=== PATIENT | female | born 1990 | race Caucasian/White ===

== ENCOUNTER 2023-02-04 07:35 | Outpatient (CLI) | payer OTHER, SELFPAY ==
[2023-02-04 14:19] LABS: Basophils Percent Auto 0.7 % (0.2-1.2); Eosinophils Absolute Auto 0.2 K/mm3 (0-0.3); Eosinophils Percent Auto 4.3 % (0-4.4); Hemoglobin 13.6 g/dL (12.0-15.0); Immature Granulocyte Absolute 0.01 K/mm3 (0.00-0.031); Immature Granulocyte Percent A 0.2 % (0-0.5); Lymphocytes Absolute Auto 1.77 K/mm3 (0.9-3.2); Lymphocytes Percent Auto 32.8 % (18.3-44.2); Mean Corpuscular HGB Conc 33.2 g/dl (32-36); Mean Corpuscular Hemoglobin 29.8 pg (26-34); Mean Corpuscular Volume 89.9 fl (80-100); Mean Platelet Volume 10.7 fl (7.4-10.4); Monocytes Absolute Auto 0.4 K/mm3 (0.1-0.6); Monocytes Percent Auto 7.4 % (2.6-8.5); Neutrophils Percent Auto 54.6 % (45.5-73.1); Platelet Count Result 256 k/mm3 (150-375); Red Blood Count 4.56 M/mm3 (4.2-5.4); Red Cell Distribution Width 13.8 % (11.5-14.5); White Blood Count 5.4 K/mm3 (4.5-10.0)
[2023-02-04 14:27] LABS: Alanine Aminotransferase 20 U/L (6-35); Albumin Level 4.4 g/dL (3.5-5.1); Alkaline Phosphatase 102 U/L (38-126); Anion Gap 7 mmol/L (8-16); Aspartate Amino Transferase 74 U/L (14-36); Bilirubin,Total 0.4 mg/dL (0.2-1.3); Blood Urea Nitrogen 18 mg/dL (7-17); Calcium 8.8 mg/dL (8.4-10.2); Carbon Dioxide 26 mmol/L (22-30); Chloride 104 mmol/L (98-107); Cholesterol 159 mg/dL (0-200); Estimated Glomerular Filt Rate > 60; Glucose 92 mg/dL (65-110); HDL Direct 43 mg/dL; Potassium 3.9 mmol/L (3.4-5.0); Sodium 137 mmol/L (137-145); Triglycerides 68 mg/dL (<150)
[2023-02-04 14:38] LABS: LDL Cholesterol Direct 86 mg/dL
[2023-02-09 05:51] LABS: FSH 7.7 mIU/mL (***); LH 10.9 mIU/mL (***); Progesterone 0.5 ng/mL (***)
[2023-02-10 18:56] LABS: Testosterone Free 2.8 pg/mL (0.1-6.4); Testosterone Total 23 ng/dL (2-45)
[2023-02-12 17:52] LABS: Estrogen 735.4 pg/mL
[2023-02-13 23:50] LABS: Estradiol, Ultrasensitive 235 pg/mL
== END 2023-02-04 07:36 | disposition home or self-care (01) ==
LOC: ANHBWCLAB 07:35
PROVIDERS: PCP Family Medicine; Visit Provider Nurse Practitioner
DX: R53.83 Other fatigue (principal); F41.9 Anxiety disorder, unspecified; F32.A Depression, unspecified; E66.9 Obesity, unspecified; K21.9 Gastro-esophageal reflux disease without esophagitis; Z76.89 Persons encountering health services in other specified circumstances
CPT/HCPCS: 36415; 80053; 80061; 82670; 82672; 83001; 83002; 84144; 84402; 84403; 84443; 85025

== ENCOUNTER 2023-03-15 03:49 | Day surgery (SDC) | payer OTHER, SELFPAY ==
[2023-03-03 09:26] VITALS: BMI 34.5
[2023-03-15 08:04] VITALS: BP 112/76; PULSE 72; RESP 16; TEMP 36; O2SAT 99
[2023-03-15] MEDS: LACTATED RINGERS 1,000 ML 150 ML IV CONT (08:11)
--- NOTE | 2023-03-15 08:18 | WPDANESEPPF ---
Anes - Initial Pre Proc Eval Procedure: Operation Date: 03/15/23 09:00 Proposed Procedures p Esophagogastroduodenoscopy - Magdy Hunt MD Date/Time: 03/15/23 08:18 Surgeon: Magdy Hunt MD Pre Op Diagnosis: GERD, Family hx colon ca Patient Data Age: 32 Gender: F Height: 1.78 m Weight: 111.2 kg Last Vital Signs Temp 36.0 C L 03/15/23 08:04 Pulse 72 03/15/23 08:04 Resp 16 03/15/23 08:04 BP 112/76 03/15/23 08:04 Pulse Ox 99 03/15/23 08:04 O2 Del Method Room Air 03/15/23 08:04 Allergies Allergy/AdvReac Type Severity Reaction Status Date / Time ciprofloxacin [From Cipro] Allergy Mild Hives Verified 03/15/23 07:59 Sulfa (Sulfonamide Allergy Hives Verified 03/15/23 07:59 Antibiotics) Home Medications Medication Instructions Recorded Confirmed Type cetirizine 10 mg tablet (Zyrtec) 10 mg PO DAILY #30 tabs 09/09/19 03/15/23 Rx spironolactone 100 mg tablet 100 mg PO DAILY 01/25/23 03/15/23 History venlafaxine 75 mg tablet 75 mg PO DAILY 01/25/23 03/15/23 History inulin 2 gram chewable tablet 2 g PO DAILY 02/04/23 03/15/23 History (Fiber Gummies) multivitamin with minerals-folic 1 tablet PO DAILY 03/03/23 03/15/23 History acid 0.4 mg tablet Patient hx anesthesia problems: none Family hx anesthesia problems: none Results Review: All pre-operative results and documents have been reviewed as part of the pre-operative evaluation. [facility] Past Medical History Medical History Family history of esophageal cancer Family History Family History Father Esophageal cancer Mother Depression Grandparent Diabetes mellitus Heart disease Grandparent Diabetes mellitus Heart disease Social History Social History Smoking status: Never smoker Alcohol intake: current Drinks per week: 4 Alcohol use details: weekend use Substance use: never Substance use type: does not use Lack of Transportation: No Lack of Food: Never True Current Housing: I Have Housing Concerned About Future Housing: No Difficulty Paying Gas/Electric Bills: No Difficulty Paying for Meds: No Currently Unemployed: No Education: Master's Degree or Higher Difficulty w/ Childcare or Family Care: No Living arrangements: with friend(s) Occupation/Education: occupation Additional occupation/education comments: [employer] Gender identity (if verbalized by the patient): Female Spiritual care concerns: No Agree to blood products: Yes Anes - Eval Final PreProcedure Day of Procedure 03/15/23 08:18 Patient weight: obese Heart: regular rate and rhythm Lungs: clear to auscultation Airway: Mallampati scale class II Neurological: alert and oriented Last oral intake: >/= 8 hours ASA classification: II Emergent: no Anesthetic plan: proceed Anesthesia type and monitoring: general GIVS and standard monitoring Results Review: All pre-operative results and documents have been reviewed as part of the pre-operative evaluation. Informed Consent: The patient's anesthetic plan and its attendant risks and benefits were discussed with the patient/family/POA. Questions were solicited and answers provided to the satisfaction of the patient/family/POA.
--- NOTE | 2023-03-15 08:35 | PM.HPGS ---
History of Present Illness History of Present Illness Consent: Risks, benefits, and alternatives have been discussed and questions answered. Patient agrees to proceed with procedure. Chief complaint: GERD, Family hx colon ca Narrative: Alka Calvin is a 32 year old female with gerd on omeprazole and pepcid, never had egd. Father had esophageal cancer. Review of Systems Constitutional: Constitutional: Denies headache(s) and Denies weakness Eyes: Eyes: Denies blurry vision ENT: Reports Normal hearing present, Denies headache(s) and Denies neck pain Cardiovascular: Cardiovascular: Denies chest pain and Denies dyspnea Respiratory: Respiratory: Denies dyspnea Gastrointestinal: Gastrointestinal: Reports no additional gastrointestinal complaints Genitourinary: Genitourinary: Denies dysuria Musculoskeletal: Musculoskeletal: Denies neck pain Integumentary/Breasts: Skin/Breast: Denies dry skin Neurologic: Reports Normal hearing present, Denies headache(s) and Denies weakness Psychiatric: Psychiatric: Denies anxiety Endocrine: Endocrine: Denies change in body appearance Hematologic/Lymphatic: Hematologic/Lymphatic: Denies easy bleeding Allergic/Immunologic: Allergic/Immunologic: Denies urticaria PMFSH Past Medical History Medical History Family history of esophageal cancer Family History Family History Father Esophageal cancer Mother Depression Grandparent Diabetes mellitus Heart disease Grandparent Diabetes mellitus Heart disease Social History Social History Smoking status: Never smoker Alcohol intake: current Drinks per week: 4 Alcohol use details: weekend use Substance use: never Substance use type: does not use Lack of Transportation: No Lack of Food: Never True Current Housing: I Have Housing Concerned About Future Housing: No Difficulty Paying Gas/Electric Bills: No Difficulty Paying for Meds: No Currently Unemployed: No Education: Master's Degree or Higher Difficulty w/ Childcare or Family Care: No Living arrangements: with friend(s) Occupation/Education: occupation Additional occupation/education comments: [employer] Gender identity (if verbalized by the patient): Female Spiritual care concerns: No Agree to blood products: Yes Meds Home Medications and Allergies Home Medications Medication Instructions Recorded Confirmed Type cetirizine 10 mg tablet (Zyrtec) 10 mg PO DAILY #30 tabs 09/09/19 03/15/23 Rx spironolactone 100 mg tablet 100 mg PO DAILY 01/25/23 03/15/23 History venlafaxine 75 mg tablet 75 mg PO DAILY 01/25/23 03/15/23 History inulin 2 gram chewable tablet 2 g PO DAILY 02/04/23 03/15/23 History (Fiber Gummies) multivitamin with minerals-folic 1 tablet PO DAILY 03/03/23 03/15/23 History acid 0.4 mg tablet Allergies Allergy/AdvReac Type Severity Reaction Status Date / Time ciprofloxacin [From Cipro] Allergy Mild Hives Verified 03/15/23 07:59 Sulfa (Sulfonamide Allergy Hives Verified 03/15/23 07:59 Antibiotics) Vital Signs Vital Signs - 24 hr 03/15/23 08:04 Temperature 96.8 F L Pulse Rate 72 Respiratory Rate 16 Blood Pressure 112/76 Pulse Oximetry 99 Oxygen Delivery Room Air Exam Const: General: comfortable and no acute distress HENMT: Face/Nose/Sinus: Normal nares present Eyes: General: appearance normal, both eyes and all related structures Neck: Neck: no JVD Resp: Auscultation: clear to auscultation bilaterally Cardio: Rate: regular rate Rhythm: regular rhythm GI: Inspection: non-distended GI Palp: Yes Soft to palpation Skin: General skin exam: normal color Neuro: General: gait normal Speech: normal speech Extrem: General: normal to inspection Psych: Mental Status: mental status grossly normal
[2023-03-15 08:53] VITALS: BP 106/68; PULSE 66; RESP 17; O2SAT 100
[2023-03-15 09:03] VITALS: BP 113/75; PULSE 67; RESP 19; O2SAT 99
[2023-03-15 09:13] VITALS: BP 105/69; PULSE 63; RESP 20; O2SAT 100
== END 2023-03-15 09:34 | disposition home or self-care (01) ==
PROVIDERS: PCP Family Medicine; Visit Provider Internal Medicine Gastroenterology
PROC: 0DJ08ZZ Inspection of Upper Intestinal Tract, Via Natural or Artificial Opening Endoscopic (ICD-10-PCS; CPT 43235; principal; 2023-03-15 09:00)
DX: K21.00 Gastro-esophageal reflux disease with esophagitis, without bleeding (principal); Z80.0 Family history of malignant neoplasm of digestive organs; E66.9 Obesity, unspecified; Z68.35 Body mass index [BMI] 35.0-35.9, adult
CPT/HCPCS: 43239; 88305; J2704; J7120

== ENCOUNTER 2024-02-07 14:48 | Outpatient (CLI) | payer OTHER, SELFPAY ==
--- NOTE | ~2024-02-07 | XR_ITS ---
XR abdomen/kub 1V 02/07/2024 15:00 INDICATION: Abdomen pain TECHNIQUE: KUB COMPARISON: None FINDINGS: Bowel gas pattern is normal. There is an IUD in the pelvis. There are surgical clips in the lower abdomen and pelvis. Moderate colonic fecal loading. There is no evidence of free air, mass, or ganomegaly, ascites or obstruction. No abnormal calculi are seen. The bones appear intact. IMPRESSION: 1: No acute abdominal abnormality identified. Reviewed, dictated and finalized at location B.
[2024-02-07 20:22] LABS: Appearance Urine Clear (Clear); Bacteria Urine 1+ /hpf; Bilirubin Urine Negative (Negative); Blood Urine Negative (Negative); Color Urine Yellow (Yellow); Glucose Urine UA Negative (Negative); Ketones Urine Negative (Negative); Leukocyte Esterase Ur 1+ LEU/UL (Negative); Nitrate Urine Negative (Negative); Non Pathogenic Casts 0-2; Protein Urine Negative (Negative); RBC Urine 0-2 /hpf (0-2); Squamous Epithelial Cell Urine None Seen /hpf (Few); Urobilinogen Urine 0.2 mg/dL (<2.0); pH Urine 7.5 (5.0-9.0)
[2024-02-07 20:24] LABS: Add Urine Microscopic? YES; Specific Grav Ur 1.004 (1.001-1.035)
== END 2024-02-07 14:49 | disposition home or self-care (01) ==
LOC: ANHBWCLAB 14:50
PROVIDERS: PCP Nurse Practitioner Adult Health; Visit Provider Nurse Practitioner Adult Health
DX: R39.9 Unspecified symptoms and signs involving the genitourinary system (principal)
CPT/HCPCS: 74018; 81001; 87077; 87086; 87088; 87186

== ENCOUNTER 2025-07-02 07:38 | Outpatient (CLI) | payer OTHER, SELFPAY ==
--- OUTSIDE RECORDS SUMMARY | 2025-07-02 07:42 | XMS_ITS | Encounter Summary ---
Author Organization [facility] Address [address] [place] [address] Phone Care Team Providers Care Document Processor Name Role Phone Dunia Olivera MD Primary Care Provider [phone] Stephani Ochoa MD Unavailable Joselyn Miramontes NP Primary Care Provider [phone] Encounter Details Date Type Department Care Team (Late st Contact Info) Description 10/07/[address] 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 us Historical Provider LAB PATHOLOGY ORDERABLES Final Result documented in this encounter Visit Diagnoses Not on filedocumented in this encounter Care Teams Document Processor Relationship Specialty Start Date End Date Dunia Olivera MD PCP - General 12/03/16 06/25/24 Joselyn Miramontes NP [address] [place] [address] PCP - General Nurse Practitioner 06/26/24 Stephani Ochoa MD [address] [place] [address] Staff Services Manager Obstetrics and Gynecology 09/05/17 documented as of this encounter
--- OUTSIDE RECORDS SUMMARY | 2025-07-02 07:42 | XMS_ITS | Clinical Summary ---
Author Organization [facility] Address [address] [place] [address] Phone Care Team Providers Care Audit Manager Name Role Phone Stephani Ochoa MD Unavailable [phone] Joselyn Miramontes NP Primary Care Provider [phone] Allergies Active Allergy Reactions Criticality Noted Date Comments Ciprofloxacin Hives Medium 12/30/2017 Sulfanilamide Hives Medium Medications levonorgestrel (MIRENA) IUD 1 each by intrauterine route once for 1 dose. 1 each 01/06/20 18 Active spironolactone (ALDACTONE) 100 mg tablet 04/08/20 22 Active venlafaxine XR (EFFEXOR-XR) 75 mg 24 hr capsuleIndicat ions:PMS (premenstrual syndrome) Take 1 capsule (75 mg total) by mouth daily 90 capsule 3 06/17/20 25 Active venlafaxine XR (EFFEXOR-XR) 75 mg 24 hr capsuleIndicat ions:PMS (premenstrual syndrome) Take 1 capsule (75 mg total) by mouth daily 90 capsule 3 06/14/20 24 2024 Discontinued(R eordanamika) methylPREDNISo lone (Medrol, Baljinder,) 4 mg DosepackIndica tions:Upper respiratory tract infection, unspecified type follow package directions 21 tablet 06/26/20 24 2024 Discontinued promethazine-D M (PROMETHAZINE- DM) 1.25-3 mg/mL syrupIndicatio ns:Allergic Rhinitis,Cough Take 5 mL by mouth 4 (four) times a day as needed for cough 120 mL 06/26/202024 Discontinued Active Problems Problem Noted Date Diagnosed Date Recurrent major depression 06/13/2023 Obesity (BMI 30-39.9) 06/09/2022 Premenstrual tension syndrome 09/19/2014 Overview (12/10/2016): PMS - Premenstrual syndrome Resolved Problems Problem Noted Date Diagnosed Date Resolved Date Gastroesophageal reflux disease 10/08/2019 07/29/2020 Assessment & Plan (10/08/2019 3:20 PM DENTAL SURGERY DOCTOR): She reports symptoms or reflux after drinking coffee in the morning and when eating hot and spicy food. She will be started on pepcid and discussed avoiding known irritants. She will follow up in 4 weeks. Cough 10/08/2019 07/29/2020 Assessment & Plan (10/08/2019 3:18 PM DENTAL SURGERY DOCTOR): Persistent has been ongoing for greater than one year. Etiology is unclear, we will do CXR to r/o acute cardiopulmonary process. We will begin treatment for reflux with pepcid as there is concern that cough may be secondary to reflux. She will follow up in 4 weeks. If no improvement possible referral to GI vs bander and cellophaner machine Urinary tract infection without hematuria 12/30/2017 07/29/2020 Assessment & Plan (12/30/2017 12:20 PM CDT): Patient complains of incomplete emptying of her bladder having make more 1 trip to the bathroom some degree of urgency, dysuria, urine has a strong her smell and mild back pain in the flank area. No fever no chills no night sweats patient has had UTIs before. She is allergic to sulfa. Patient is given ciprofloxacin 500 mg twice a day for 5 days [employer]A CIVIL ENGINEERING PROFESSOR requested. Encounters Date Type Department Care Team Description 06/17/2025 3:00 PM CDT Office Visit [facility] [address] [place] [address] Stephani Ochoa MD Encounter for gynecological examination without abnormal finding (Primary Dx); Surveillance of intrauterine contraception; PMS (premenstrual syndrome); Encounter for general counseling and advice on contraceptive management from Last 3 Months Immunizations Immunization Administration Dates Next Due DT 02/10/2004 DTaP, Unspecified 07/24/1994, 1,01/13/1990,11/16,1989 Hep B, Unspecified 07/10/1998,01/01/1998, 998 Influenza, Trivalent, Preser vative Free, Intramuscular 08/20/2015 Influenza, Unspecified 07/04/2020 MMR 07/24/1994,10/24/1990 PPD TEST 07/29/2020 PPD TEST, UNSPECIFIED 02/10/2004 Tdap 01/09/2013 Surgical History Surgery Date Site/Laterality Comments APPENDECTOMY 03/05/2005 - 04/04/2005 Appendectomy OTHER SURGICAL HISTORY 1983 Adenoids removed TYMPANOSTOMY TUBE PLACEMENT 1983 Tubes in ears OTHER SURGICAL HISTORY 09/05/2011 - 09/04/2012 HR HPV positive: Excision skin lesions, left thigh Medical History Medical History Date Comments Hx Other Medical HR HPV positive Varicella GERD (gastroesophageal reflux disease) Family History Medical History Relation Name Comments Esophageal cancer Father Barretts- COD Allergies Other 1 Family history of Allergies; Diabetes Other 2 Family history of Diabetes mellitus; Other Other 3 No family histo ry of Cancer, breast; Relation Name Status Comments Father Other 1 Other 2 Other 3 Social History Tobacco Use Types Packs/Day Years Used Date Smoking Tobacco: Never Smokeless Tobacco: Never Alcohol Use Standard Drinks/Week Comments Yes 0 (1 standard drink = 0.6 oz pur e alcohol) PHQ-2 Answer Date Recorded PHQ-2 Total Score (If total score is 3 or more points, staff should administer the PHQ-9) 0 07/29/2020 Comments No Sex and Gender Information Value Date Recorded Sex Assigned at Not on file Legal Sex Female 5:13 PM DENTAL SURGERY DOCTOR Gender Identity Not on file Sexual Orientation Not on file 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 Not on file Not on file Obstetrics History Para Term AB IAB SAB Ectopic Multiple Livin g Live Births 0 0 0 0 0 0 0 0 0 0 0 Last Filed Vital Signs Vital Sign Reading Time Taken Comments Blood Pressure 122/70 06/17/2025 3:14 PM CDT Pulse 88 06/26/2024 4:07 PM CDT Temperature 37.1 C (98.8 F) 06/26/2024 4:07 PM CDT Respiratory Rate 18 06/26/2024 4:07 PM CDT Oxygen Saturation 97% 06/26/2024 4:07 PM CDT Inhaled Oxygen Concentration - - Weight 105.2 kg (232 lb) 06/17/2025 3:14 PM CDT Height 177.8 cm (5' 10) 06/17/2025 3:14 PM CDT Body Mass Index 33.29 06/17/2025 3:14 PM CDT Plan of Treatment Health Maintenance Due Date Last Done Comments Hepatitis C Screening 1990 HPV Vaccines (1 - 3-dose SCDM series) 2016 Depression Screening 07/29/2021 07/29/2020 DTaP/Tdap/Td Vaccine (8 - Td or Tdap) 01/09/2023 01/09/2013, 02/10/2004, 07/24/1994, Additional history exists Cervical Cancer Screening 06/09/20232021, 05/31/2019, 11/12/2016 Influenza Vaccine (#1) 2025 07/04/2020, 2014 Regular Well Visit/Exam 18-64 06/17/2026 06/17/2025, 06/14/2024, 06/13/2023, Additional history exists Hepatitis B Screening Completed 07/10/1998 , 01/01/1998, 11/29/1997 Pneumococcal vaccine <65 Aged Out No longer eligible based on patient's age to complete this topic Procedures Procedure Name Priority Date/Time Associated Diagnosis Comments PAP AND HIGH RISK HPV, REFLEX TO GENOTYPING Routine 06/09/2022 12:53 PM CDT Screening for malignant neoplasm of the cervix from Last 3 Months or Most Recently Relevant to Health Maintenance Results * Pap and High Risk HPV, reflex to Genotyping (06/09/2022 12:53 PM CDT) Thin prep (Pap test) 06/09/2022 12:53 PM CDT 06/09/2022 12:53 PM CDT Narrative PATHOLOGY CH - 06/11/2022 12:15 PM CDT [facility] Department of Pathology [address] [place], [place] [id number] Final Report with Addendum Note to Patients: This report may contain a detailed description of human tissue sent by a health care provider to the laboratory for pathologic evaluation. The content of this report is essential for diagnosis and may provide important critical findings. This information may be unfamiliar to patients to review without a medical professional present. It is advised that the patient review this report in the presence of a health care provider who can answer questions and explain the details. Patient Name: CIARA SCHWARTZ Address: [address] [place] [address] Gender: F : 1990 (Age: 31) Service: Laboratory Location: Hospital #: [id number] Patient Type: SPECIMEN Taken: 06/09/2022 Received: 06/09/2022 Accessioned:: 06/10/2022 Reported: 06/11/2022 Physician(s): MD Stephani aSlinas MD Diagnosis: Source of Specimen: SCREENING THIN PREP IMAGED PAP w/ HPV Specimen Adequacy: - Satisfactory for evaluation; endocervical/transformation zone component present General Category: - Negative for intraepithelial lesion or malignancy DEMARCO Robles(ASCP) Report Electronically Reviewed and Signed Out By JAC RoblesASC) 06/11/2022 12:15:06Addenda: HPV Test Interpretation NEGATIVE for types 16, 18, 31, 33, 35, 39, 45, 51, 52, 56, 58, 59, 66 and 68. Test performed utilizing Gen-Probe Aptima assay. DEMARCO Perry(ASCP)Report Electronically Reviewed and Signed Out By JAC PerryASCP) 06/10/2022 17:01:28 Specimen(s) Received: A: SCREENING THIN PREP IMAGED PAP w/ HPV Clinical History: Menstrual History: Previous Negative Pap: 05/2019 Contraceptive History: IUD The Pap test is a screening test used to aid in the detection of cervical cancer and its precursors. It should not be the sole means by which malignant and premalignant lesions are diagnosed. Both false negative and false positive results may occur. It also has poor sensitivity for the detection of endometrial lesions and should not be used to evaluate suspected endometrial abnormalities. For these reasons it is most important to obtain Pap tests at regular intervals. The performance characteristics of some immunohistochemical stains, fluorescence in-situ hybridization tests and immunophenotyping by flow cytometry cited in this report (if any) were determined by the Surgical Pathology Department at [facility] as part of an ongoing quality assurance associate program and in compliance with federally mandated regulations drawn from the Clinical Laboratory Improvement Act of 1988 (CLIA '88). Some of these tests rely on the use of analyte specific reagents and are subject to specific labeling requirements by the US Food and Drug Administration. Such diagnostic tests may only be performed in a facility that is certified by the Department of Health and Human Services as a high complexity laboratory under CLIA '88. The FDA has determined that such clearance or approval is not necessary. This test is used for clinical purposes. It should not be regarded as investigational or for research. Nevertheless, federal rules concerning the medical use of analyte specific reagents require that the following disclaimer be attached to the report: This test was developed and its performance characteristics determined by the Surgical Pathology Department [facility]. It has not been cleared or approved by the U. S. Food and Drug Administration. Stephani Ochoa MD LAB CYTOLOGY ORDERABL ES Final Result [facility] [address] [place] [address] from Last 3 Months or Most Recently Relevant to Health Maintenance Insurance [facility] HMO [id number] [place] [address] HEALTHCARE HMO Advance Directives For more information, please contact: [phone] Documents on File Type Date Recorded Patient Orthopaedic General Expl anation ADVANCE DIRECTIVE 07/29/2020 POWER OF A [employer] Care Teams Audit Manager Relationship Specialty Start Date End Date Joselyn Miramontse NP [address] [place] [address] PCP - General Nurse Practitioner 06/26/24 Stephani Ochoa MD [address] [place] [address] Rn Invasive Obstetrics and Gynecology 09/05/17
--- OUTSIDE RECORDS SUMMARY | 2025-07-02 07:42 | XMS_ITS | Encounter Summary ---
Author Organization [facility] Address [address] [place] [address] Phone Care Team Providers Care Radiographer Name Role Phone Dunia Olivera MD Primary Care Provider [phone] Stephani Ochoa MD Unavailable [phone] Joselyn Miramontes NP Primary Care Provider [phone] Encounter Details Date Type Department Care Team (Late st Contact Info) Description 02/04/2023 Orders Only [facility] [address] [place] [address] Scanning, Provider Social History Tobacco Use Types Packs/Day Years [...] on file Legal Sex Female 5:13 PM AIR CONDITIONING MECHANIC Gender Identity Not on file Sexual Orientation Not on file 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 Not on file Not on file Student Not on file Not on file Not on file documented as of this encounter Plan of Treatment Not on file documented as of this encounter Procedures Procedure Name Priority Date/Time Associated Diagnosis Comments SCAN - LABS 02/04/2023 documented in this encounter Results * SCAN - LABS (02/04/2023) us Provider Scanning Final Result documented in this encounter Visit Diagnoses Not on filedocumented in this encounter Care Teams Radiographer Relationship Specialty Start Date End Date Dunia Olivera MD PCP - General 12/03/16 06/25/24 Joselyn Miramontes NP [address] [place] [address] PCP - General Nurse Practitioner 06/26/24 Stephani Ochoa MD [address] [place] [address] [employer] Service Obstetrics and Gynecology 09/05/17 documented as of this encounter
--- OUTSIDE RECORDS SUMMARY | 2025-07-02 07:42 | XMS_ITS | Encounter Summary ---
Author Organization [facility] Address [address] [place] [address] Phone Care Team Providers Care Supply Chain Consultant Name Role Phone Dunia Olivera MD Primary Care Provider [phone]- [phone] Stephani Ochoa MD Unavailable Joselyn Miramontes NP Primary Care Provider [phone] Encounter Details Date Type Department Care Team (Late st Contact Info) Description 09/09/2017 Orders Only [facility] ProviderPresley [place] [facility] [place] [address] Social History Tobacco Use Types Packs/Day Years Used Date Smoking Tobacco: Never Smokeless Tobacco: Never Alcohol Use Standard Drinks/Week Comments No 0 (1 standard drink = 0.6 oz pur e alcohol) Comments No Sex and Gender Information Value Date Recorded Sex Assigned at Not on file Legal Sex Female 5:13 PM RESIDENCY PROGRAM COORDINATOR Gender Identity Not on file Sexual Orientation Not on file 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 us Historical Provider LAB BLOOD ORDERABLES Naida l Result documented in this encounter Visit Diagnoses Not on filedocumented in this encounter Care Teams Supply Chain Consultant Relationship Specialty Start Date End Date Dunia Olivera MD PCP - General 12/03/16 06/25/24 Joselyn Miramontes NP [address] [place] [address] PCP - General Nurse Practitioner 06/26/24 Stephani Ochoa MD [address] [place] [address] Cat Cracker Operator Obstetrics and Gynecology 09/05/17 documented as of this encounter
--- OUTSIDE RECORDS SUMMARY | 2025-07-02 07:42 | XMS_ITS | Encounter Summary ---
Author Organization [facility] Address [address] [place] [address] Phone Care Team Providers Care Pinking Machine Operator Name Role Phone Dunia Olivera MD Primary Care Provider [phone]- [phone] Stephani Ochoa MD Unavailable Joselyn Miramontes NP Primary Care Provider [phone] Encounter Details Date Type Department Care Team (Late st Contact Info) Description 12/30/2017 Orders Only [facility] ProviderPresley MD [address] [place] [address] Social History Tobacco Use Types Packs/Day Years Used Date Smoking Tobacco: Never Smokeless Tobacco: Never Alcohol Use Standard Drinks/Week Comments No 0 (1 standard drink = 0.6 oz pur e alcohol) Comments No Sex and Gender Information Value Date Recorded Sex Assigned at Not on file 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 us Historical Provider LAB BLOOD ORDERABLES Naida l Result documented in this encounter Visit Diagnoses Not on filedocumented in this encounter Care Teams Pinking Machine Operator Relationship Specialty Start Date End Date Dunia Olivera MD PCP - General 12/03/16 06/25/24 Joselyn Miramontes NP [address] [place] [address] PCP - General Nurse Practitioner 06/26/24 Stephani Ochoa MD [address] [place] [address] Account Services Specialist Obstetrics and Gynecology 09/05/17 documented as of this encounter
[2025-07-02 19:12] LABS: Alanine Aminotransferase 18 U/L (6-35); Albumin Level 4.2 g/dL (3.5-5.1); Alkaline Phosphatase 92 U/L (38-126); Anion Gap 8 mmol/L (4-12); Aspartate Amino Transferase 66 U/L (14-36); Bilirubin,Total 0.3 mg/dL (0.2-1.3); Blood Urea Nitrogen 18 mg/dL (7-17); Calcium 8.9 mg/dL (8.4-10.2); Carbon Dioxide 26 mmol/L (22-30); Chloride 104 mmol/L (98-107); Cholesterol 166 mg/dL (0-200); Estimated Glomerular Filt Rate > 60; Glucose 84 mg/dL (65-110); HDL Direct 44 mg/dL; Potassium 4.2 mmol/L (3.4-5.0); Sodium 138 mmol/L (137-145); Total Protein 7.6 g/dL (6.3-8.2); Triglycerides 63 mg/dL (<150)
[2025-07-02 19:26] LABS: Hematocrit 41.6 % (37.0-47.0); Hemoglobin 13.4 g/dL (12.0-15.0); Mean Corpuscular HGB Conc 32.2 g/dl (32-36); Mean Corpuscular Hemoglobin 30.2 pg (26-34); Mean Corpuscular Volume 93.7 fl (80-100); Platelet Count Result 243 k/mm3 (150-375); Red Blood Count 4.44 M/mm3 (4.2-5.4); White Blood Count 5.0 K/mm3 (4.5-10.0)
[2025-07-02 19:51] LABS: Thyroid Stimulating Hormone 1.320 uIU/mL (0.465-4.680)
[2025-07-02 20:10] LABS: Vitamin B12 926.0 pg/mL (239-931)
== END 2025-07-02 07:39 | disposition home or self-care (01) ==
LOC: ANHBWCLAB 07:39
PROVIDERS: PCP Nurse Practitioner Adult Health; Visit Provider Nurse Practitioner Adult Health
DX: K21.9 Gastro-esophageal reflux disease without esophagitis (principal); Z76.89 Persons encountering health services in other specified circumstances
CPT/HCPCS: 36415; 80053; 80061; 82607; 84443; 85027